=== PATIENT | female | born 1995 | race Caucasian/White ===

== ENCOUNTER 2016-10-19 18:13 | Emergency (ER) | payer OTHER | END 2016-10-19 23:30 | disposition home or self-care (01) | LOC: ER1 18:13 | DX: N93.9 Abnormal uterine and vaginal bleeding, unspecified (principal); E66.9 Obesity, unspecified; Z90.49 Acquired absence of other specified parts of digestive tract | CPT/HCPCS: 36415; 81001; 84703; 87086; 87210; 99284 ==